=== PATIENT | female | born 1985 | race Caucasian/White ===

== ENCOUNTER 2016-08-15 04:39 | Emergency (ER) | payer SELFPAY ==
[~2016-08-15] VITALS: Ht 167.6 cm; Wt 57.6 kg
[2016-08-15] MEDS ORDERED: TRUVADA 200 MG1 EAC1 ORAL (04:57)
[2016-08-15] MEDS ORDERED: QUETIAPINE FUMA25 MG ORAL (04:57)
[2016-08-15 05:05] VITALS: BP 123/81
[2016-08-15] MEDS ORDERED: PERMETHRIN60 GM TOPIC (05:09)
[2016-08-15] MEDS ORDERED: LICE KILLING S118 ML TP (05:09)
[2016-08-15 05:15] VITALS: BP 123/81
--- NOTE | 2016-08-17 07:04 | Emergency Room Report ---
History of Present Illness General Chief Complaint: General Complaint Source: Patient Present Illness HPI 31-year-old female presents to ED she has "bugs" in her hair. Patient states she woke up a few days ago and noticed that her scalp is very itchy. Denies any pain. Denies any itchiness to the skin. Denies any rash. Patient is disheveled and currently resides in shelters. No other aggravating or relieving factors. Denies any other associated symptoms Allergies: Coded Allergies: No Known Allergies (Unverified , 08/15/16) Patient History Past Medical History: psych hx Pertinent Family History: none Social History: Denies: alcohol use, drug use, smoking Last Menstrual Period: last month Now: No Immunizations: UTD Reviewed Nursing Documentation: PMH: Agreed, PSxH: Agreed Nursing Documentation-PMH History Of Psychiatric Problem: Yes - SCHIZO,BIPOLAR Review of Systems All Other Systems: negative except mentioned in HPI Physical Exam Vital Signs Date Time Temp Pulse Resp B/P Pulse Ox O2 Delivery O2 Flow Rate FiO2 08/15/16 04:49 98.1 84 16 123/81 100 Room Air Sp02 EP Interpretation: reviewed, normal General Appearance: no apparent distress, alert, GCS 15, non-toxic Head: normocephalic Eyes: bilateral eye PERRL, bilateral eye normal inspection ENT: normal ENT inspection Neck: normal inspection Respiratory: normal inspection Cardiovascular #1: normal inspection Gastrointestinal: normal inspection Rectal: deferred Genitourinary: no CVA tenderness Musculoskeletal: normal inspection Neurologic: alert, oriented x3, responsive, motor strength/tone normal, sensory intact, speech normal Psychiatric: anxious Skin: other - small knits in scalp - lice Lymphatic: normal inspection Medical Decision Making Diagnostic Impression: Primary Impression: Scalp itch Additional Impression: Lice infested hair ER Course Hospital Course 31-year-old female presents ED with a itchy scalp Differential diagnoses include: Cellulitis, dermatitis, insect bite, abscess Clinical course Patient placed on stretcher. After initial history, physical exam reveals a young female in no acute distress. Patient is disheveled. There are multiple white nits in the scalp-consistent with lice. Scalp otherwise unremarkable Diagnosis - scalp itch, lice infested hair stable and discharged to home with prescription for lice shampoo. Instructed to followup with PMD. Instructed return to ED if symptoms recur or worsen Last Vital Signs Date Time Temp Pulse Resp B/P Pulse Ox O2 Delivery O2 Flow Rate FiO2 08/15/16 05:15 98.1 16 123/81 100 Room Air 08/15/16 04:49 84 Status: improved Disposition: HOME, SELF-CARE Condition: Stable Scripts Permethrin* (ELIMITE*) 60 Gm Cream..g. 1 APPLIC TOPIC ONCE, #60 GM 0 Refills Apply cream from head to toe; leave on for 8-14 hours before washing off with water; may reapply in 1 week if live mites appear. Prov: CALIXTO TILLEY M.D. 08/15/16 Piperonyl Butoxide/Pyrethrins (LICE KILLING SHAMPOO) 118 Ml Shampoo 118 ML TP DAILY, #1 UNIT Prov: CALIXTO TILLEY M.D. 08/15/16 Referrals: NOT CHOSEN D[facility]/,REFERRING (PCP) Patient Instructions: Lice, Adult, Contact Precautions, [id number] CALIXTO TILLEY M.D. Aug 17, 2016 07:04
== END 2016-08-15 05:15 | disposition home or self-care (01) ==
LOC: EMR 05:08
DX: L29.8 Other pruritus (principal); B85.0 Pediculosis due to Pediculus humanus capitis; Z86.59 Personal history of other mental and behavioral disorders
CPT/HCPCS: 99284